=== PATIENT | female | born 1975 | race Caucasian/White ===

== ENCOUNTER 2017-01-28 20:47 | Emergency (ER) | payer SELFPAY ==
--- NOTE | ~2017-01-28 | ER ---
PATIENT'S NAME: DANIEL VALLADARES [facility] AGE: 41 Y [address] ROOM: [place] [address] LOCATION: [facility] ADMIT DATE: 01/28/2017 ER/Outpatient Report DISCHARGE DATE: 01/28/2017 FAMILY PHYSICIAN: Ang Brower MD ATTENDING PHYSICIAN: Glenn Matthews Time of Admission: 7 hours. Time of Evaluation: 7 hours. CHIEF COMPLAINT: Left foot pain. HISTORY OF PRESENT ILLNESS: Daniel is a 41-year-old female, who presents with her to the emergency room with an injury to her left foot. She reports yesterday she was walking upstairs, wearing flip-flops to her apartment. She has to go up 3 flights of stairs what she describes as very narrow. Her foot slipped, and she fell back down 2-3 stairs. Since then, her foot has been extremely sore. She did attend work today and was hobbling around, more pain was reproduced. The patient was here in August with a left foot injury, does have a boot at home that she may wear. She was to follow up with Dr. Zamora per our records, but she has not done this. She does have a history of flat feet. The patient denies any other pain to her proximal lower leg. She denies any other concerns at this time. PAST MEDICAL HISTORY: 1. Postoperative tubal ligation. 2. Postoperative ovarian cystectomy. ALLERGIES: NO KNOWN MEDICAL ALLERGIES. MEDICATIONS: 1. Tylenol 1 p.o. daily. 2. Benadryl 1 p.o. daily. SOCIAL HISTORY: The patient does smoke half a pack of cigarettes daily, has done this for the last 23 years. She denies any drug use, alcohol is socially. REVIEW OF SYSTEMS: All systems reviewed by myself and negative with the exception of those noted in the HPI. PHYSICAL EXAMINATION: PATIENT'S NAME: DANIEL VALLADARES [facility] AGE: 41 Y [address] ROOM: [place] [address] LOCATION: [facility] ADMIT DATE: 01/28/2017 ER/Outpatient Report DISCHARGE DATE: 01/28/2017 FAMILY PHYSICIAN: Ang Brower MD ATTENDING PHYSICIAN: Glenn Matthews VITAL SIGNS: Current height 5 feet 1 inch, weight 49.9 kg. Temp 98.6, pulse 85, respirations 16, blood pressure 159/85. She is 97% on room air. GENERAL: Daniel is alert and oriented x4, cooperative, in no acute distress. SKIN: Overall is within normal limits. There is a little bit of bruising noted to the medial aspect of her foot; otherwise, no obvious deformities, abrasions noted. EYES: Sclerae are nonicteric. Pupils are equal, round, and reactive to light. CHEST AND LUNGS: Lung sounds are clear throughout. HEART: Regular rate and rhythm without murmur. EXTREMITIES: Lower extremity, left lower foot, she is pretty tender along the dorsal aspect of her left foot, first metatarsal region. The patient is able to perform range of motion with her toes, pedal pulses 2+. Her foot is warm. The patient does not have any tenderness along the ankle, no heel pain. No pain proximally up into her lower leg. Most of the tenderness is just along the distal first metatarsal. NEUROLOGIC: No focal deficits are noted. ASSESSMENT: Left foot sprain secondary to fall. PLAN: I did review the x-ray with Dr. Matthews, in which there is no acute fracture or dislocation noted. The patient does have that boot at home, which she feels comfortable wearing. We did place a 4 inch Kyler wrap for comfort, she will use this tonight. Aleve 2 pills every 12 hours with food for the next 5-7 days, Tylenol in between for breakthrough pain. She will ice it as needed. A note is written for work in which she will try and do more sitting than standing. She is going to follow up with her primary care physician Dr. Brower next week if her foot is not feeling any better. She will wear her boot for the next 5-7 days and see how things go. The patient's condition is stable. ORIN CHAVEZ APRN FOR MD [facility] LEIVA/sunita /[id number] d: 01/29/17 0206 t: 02/18/17 0649, OUTPATIENT REPORT
== END 2017-01-28 21:44 | disposition disaster alternative care site (69) ==
LOC: GACC 20:47
DX: S93.602A Unspecified sprain of left foot, initial encounter (principal); F17.210 Nicotine dependence, cigarettes, uncomplicated; Z79.899 Other long term (current) drug therapy; Z90.6 Acquired absence of other parts of urinary tract; Z98.51 Tubal ligation status; W10.9XXA Fall (on) (from) unspecified stairs and steps, initial encounter

== ENCOUNTER 2017-04-17 00:16 | Emergency (ER) | payer SELFPAY ==
--- NOTE | ~2017-04-17 | ER ---
PATIENT'S NAME: ROBERTH VALLADARES [facility] AGE: 42 Y [address] ROOM: [place], [place] [address] LOCATION: [facility] ADMIT DATE: 04/17/2017 ER/Outpatient Report DISCHARGE DATE: 04/17/2017 FAMILY PHYSICIAN: PHYSICIAN, NO ATTENDING PHYSICIAN: Ester Whiting HISTORY OF PRESENT ILLNESS: This is a 42-year-old female who presents on 04/17/2017 at 12:19 a.m. for right wrist pain. She is right handed. She says there is no injury. She has had it for 3 days. When asked why she came in at midnight for this, she states that it just hurts and the Tylenol 500 mg that she took 7 hours ago is not helping. She reports that it is a throbbing pain all around her wrist especially the dorsal area. Denies injury. She does not type a lot. She has never had anything like this before. It is actually better than it was 3 days ago and the swelling has gone down, but the pain has not completely gone, so that is why she came in. She reports her pain is a 7/10. PAST MEDICAL HISTORY: None. PAST SURGICAL HISTORY: Tubal ligation. SOCIAL HISTORY: She smokes half a pack per day and has done so for the last 20 years. MEDICATIONS: None. ALLERGIES: NONE. REVIEW OF SYSTEMS: Reviewed by me and negative with the exception of those discussed in the HPI. PHYSICAL EXAMINATION: VITAL SIGNS: The patient is 5 feet and 1 inch, she weighs 52.9 kilos, blood pressure 119/74, heart rate 90, respiratory rate 16, temperature is 98.1, saturations . GENERAL: The patient does not appear in any acute distress. She smells very strongly of cigarette smoke, but she is not writhing in pain. She is sort of cradling that right arm and right hand though. She is nontoxic appearing. She does not have a fever. EXTREMITIES: She has limited range of motion of that wrist secondary to pain, but it is a very mild dorsal swelling, but it is not red or hot to touch. PATIENT'S NAME: ROBERTH VALLADARES [facility] AGE: 42 Y [address] ROOM: [place], [place] [address] LOCATION: [facility] ADMIT DATE: 04/17/2017 ER/Outpatient Report DISCHARGE DATE: 04/17/2017 FAMILY PHYSICIAN: PHYSICIAN, AARTI ATTENDING PHYSICIAN: Ester Whiting There is no significant swelling. She has no edema. She can move her fingers, although diminished because she says it hurts her hands. Her grasp strength in the hand is diminished, but otherwise she is intact in the radial, median, and ulnar distributions. EMERGENCY ROOM COURSE: An x-ray was done. On my read, it looks totally normal. Discussed this with the patient. She can take ibuprofen or Tylenol for this. We will put her in a splint for some comfort. IMPRESSION: Wrist pain. MD STEFANI HUGHES/sunita /[id number] d: 04/17/172 t: 04/17/17 0608, OUTPATIENT REPORT
== END 2017-04-17 00:58 | disposition disaster alternative care site (69) ==
LOC: GMED 00:16
DX: M25.531 Pain in right wrist (principal); F17.210 Nicotine dependence, cigarettes, uncomplicated; Z98.51 Tubal ligation status